=== PATIENT | male | born 2005 | race Caucasian/White ===

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

== ENCOUNTER 2025-07-23 12:32 | Emergency (ER) | payer OTHER ==
[~2025-07-23] VITALS: Ht 185.4 cm; Wt 109.0 kg
[2025-07-23 13:26] LABS: PLATELET COUNT, AUTOMATED 268 10^3/uL (150-450)
[2025-07-23 13:50] LABS: AMPHETAMINES LEVEL URINE NEGATIVE (NEGATIVE); BARBITURATES URINE NEGATIVE (NEGATIVE); BENZODIAZEPINES URINE NEGATIVE (NEGATIVE); COCAINE METABOLITE URINE NEGATIVE (NEGATIVE)
[2025-07-23] MEDS ORDERED: HOME MED LIST COMPLETE! XX SCH (13:50)
[2025-07-23 13:51] LABS: CANNABINOIDS URINE NEGATIVE (NEGATIVE); ETHYL ALCOHOL (ETHANOL) < 0.003 % (0.000-0.010); METHADONE URINE NEGATIVE (NEGATIVE); OPIATES URINE NEGATIVE (NEGATIVE); PHENCYCLIDINE URINE NEGATIVE (NEGATIVE)
[2025-07-23 13:53] LABS: SALICYLATE LEVEL < 3.0 MG/DL (<30)
[2025-07-23 13:54] LABS: ALT/SGPT 22 U/L (7.0-40); AST/SGOT 25 U/L (<34); CALCIUM LEVEL 9.6 MG/DL (8.5-10.1); CARBON DIOXIDE LEVEL 24 MMOL/L (20-31); CHLORIDE LEVEL 107 MMOL/L (98-107); CREATININE FOR GFR 0.83 MG/DL (0.70-1.30); GLOMERULAR FILTRATION RATE > 90.0 (>60); POTASSIUM SERUM 3.7 MMOL/L (3.5-5.1); SODIUM LEVEL 140 MMOL/L (136-145)
[2025-07-23 16:10] VITALS: BP 134/74; TEMP 98.9; O2SAT 100
== END 2025-07-23 16:11 | disposition home or self-care (01) ==
LOC: M ED 12:32
DX: R45.89 Other symptoms and signs involving emotional state (principal); F31.9 Bipolar disorder, unspecified; F84.0 Autistic disorder; F90.9 Attention-deficit hyperactivity disorder, unspecified type; Z88.1 Allergy status to other antibiotic agents